=== PATIENT | female | born 2000 | race Caucasian/White ===

== ENCOUNTER 2019-06-16 15:52 | Outpatient (CLI) | payer OTHER ==
[~2019-06-16 15:52] MED LIST: DULCOLAX10 MG RC; GILTUSS TR TAB1 EACH PO; OFLOXACIN5 M1 OT; SENOKOT TAB1 TAB PO; VOLTAREM 50 MG PO; ZANTAC150 MG PO; ZITHROMAX TRI-500 MG PO
== END 2019-06-16 19:00 | disposition home or self-care (01) ==
LOC: RAD 15:52
DX: M25.561 Pain in right knee (principal)

== ENCOUNTER → 2020-04-23 10:01 | Outpatient (CLI) | payer OTHER | END | disposition home or self-care (01) | LOC: LAB 10:01 | PROVIDERS: ATTEND Obstetrics & Gynecology | DX: D64.89 Other specified anemias (principal); R74.8 Abnormal levels of other serum enzymes; N39.0 Urinary tract infection, site not specified; E78.49 Other hyperlipidemia; E03.8 Other specified hypothyroidism; E55.9 Vitamin D deficiency, unspecified; R10.2 Pelvic and perineal pain ==

== ENCOUNTER 2021-03-14 10:30 | Outpatient (CLI) | payer OTHER | END 2021-03-14 11:00 | disposition home or self-care (01) | LOC: PPH VACUNA 10:30 | PROVIDERS: ATTEND Emergency Medicine Pediatric Emergency Medicine | DX: Z23 Encounter for immunization (principal) ==

== ENCOUNTER 2021-07-28 10:48 | Emergency (ER) | payer OTHER ==
[~2021-07-28] VITALS: Ht 157.5 cm; Wt 72.6 kg
== END 2021-07-28 16:04 | disposition home or self-care (01) ==
LOC: ER 10:48
DX: L98.9 Disorder of the skin and subcutaneous tissue, unspecified (principal)

== ENCOUNTER 2022-01-19 07:10 | Outpatient (CLI) | payer OTHER | END 2022-01-19 07:21 | disposition home or self-care (01) | LOC: LAB 07:10 | PROVIDERS: ATTEND Dermatology | DX: D64.9 Anemia, unspecified (principal); M85.80 Other specified disorders of bone density and structure, unspecified site; E78.5 Hyperlipidemia, unspecified; E03.9 Hypothyroidism, unspecified; M32.9 Systemic lupus erythematosus, unspecified ==

== ENCOUNTER 2022-05-17 07:24 | Outpatient (CLI) | payer OTHER | END 2022-05-17 07:27 | disposition home or self-care (01) | LOC: RAD 07:24 | PROVIDERS: ATTEND Orthopaedic Surgery | DX: M25.561 Pain in right knee (principal) ==

== ENCOUNTER 2022-07-03 10:12 | Outpatient (CLI) | payer OTHER | END 2022-07-03 10:15 | disposition home or self-care (01) | LOC: LAB 10:12 | PROVIDERS: ATTEND Orthopaedic Surgery | DX: M19.90 Unspecified osteoarthritis, unspecified site (principal); M25.50 Pain in unspecified joint ==

== ENCOUNTER 2022-08-10 06:52 | Outpatient (CLI) | payer OTHER | END 2022-08-10 07:00 | disposition home or self-care (01) | LOC: MRI 06:52 | PROVIDERS: ATTEND Orthopaedic Surgery | DX: M25.561 Pain in right knee (principal); M23.91 Unspecified internal derangement of right knee | CPT/HCPCS: 73721 ==

== ENCOUNTER → 2024-01-10 10:35 | Outpatient (CLI) | payer OTHER ==
[2024-01-10 11:10] LABS: HEMATOCRIT 38.2 % (36.0-45.00); HEMOGLOBIN 13.4 g/dL (12.0-15.00); MEAN CELL VOLUME 88.4 fL (80.00-100.00); MEAN CORPUSCULAR HEMOGLOBIN 31.1 pg (27.00-32.0); MEAN CORPUSCULAR HGB CONC 35.2 g/dl (32.0-36.0); PLATELET COUNT 265 K/uL (150-450); RED BLOOD COUNT 4.32 M/uL (4.00-6.00); RED CELL DISTRIBUTION WIDTH 12.8 % (11.5-14.5)
[2024-01-10 11:15] LABS: URINE APPEARANCE Clear; URINE BILIRRUBIN Small (NEGATIVE); URINE BLOOD Negative; URINE COLOR Dark Yellow; URINE GLUCOSE Negative (NEGATIVE); URINE LEUKOCYTE Trace; URINE NITRATE Negative; URINE PROTEIN Trace (NEGATIVE)
[2024-01-10 11:16] LABS: URINE BACTERIA 361.6 uL (0.0-1933); URINE RBC 4.7 uL (0.0-20.8)
[2024-01-10 11:47] LABS: URINE CAST 0.15 uL (0.0-1.40); URINE KETONE 40 (NEGATIVE)
[2024-01-10 12:23] LABS: ALBUMIN 3.8 gm/dL (3.4-5.0); BILIRUBIN TOTAL 0.85 mg/dL (0.3-1.2); BILIRUBIN,CONJUGATED 0.23 mg/dL (0.0-0.2); BILIRUBIN,UNCONJUGATED 0.62 mg/dL (0.0-0.6); CALCIUM 9.2 mg/dL (8.5-10.1); CHOL HDL RATIO 3.3 (0-5.0); CREATININE SERUM 0.6 mg/dL (0.55-1.02); GFR 122.82; GLOBULINA 3.3 G/DL (2.4-3.5); POTASSIUM 3.98 mEq/L (3.5-5.1); T4 TOTAL 7.13 UG/DL (4.8-13.9); TOTAL PROTEIN 7.1 gm/dL (6.4-8.2); TSH 0.613 uIU/mL (0.358-3.74)
[2024-01-10 12:54] LABS: T3 TOTAL 1.5 ng/ml (0.846-2.02); VITAMIN D3 25 HYDROXY 27.34 ng/ml (30-120)
== END | disposition home or self-care (01) ==
LOC: LAB 10:35
DX: E78.5 Hyperlipidemia, unspecified (principal); E55.9 Vitamin D deficiency, unspecified; Z00.00 Encounter for general adult medical examination without abnormal findings; N39.0 Urinary tract infection, site not specified; R42 Dizziness and giddiness; R21 Rash and other nonspecific skin eruption; R10.9 Unspecified abdominal pain

== ENCOUNTER 2024-06-02 05:03 | Emergency (ER) | payer OTHER ==
[~2024-06-02] VITALS: Ht 162.6 cm; Wt 74.8 kg
[2024-06-02] MEDS ORDERED: CEFTRIAXONE SODIUM 1,000 MG VIAL IM STA (06:34)
[2024-06-02] MEDS ORDERED: KETOROLAC TROMETHAMINE 60 MG VIAL IM STA (06:34)
[2024-06-02] MEDS ORDERED: NEOMYCIN/POLYMYXIN B/HYDROCORT 20 DR/ML BOTTLE OT STA (06:35)
[2024-06-02] MEDS ORDERED: CEPHALEXIN500 MG PO (06:50)
[2024-06-02] MEDS ORDERED: KETO10TA2 PO (06:50)
[2024-06-02] MEDS ORDERED: CORTISPORIN EAR10 M1 OPHT (06:52)
== END 2024-06-02 07:03 ==
LOC: ER 05:05
DX: H60.91 Unspecified otitis externa, right ear (principal)